=== PATIENT | male | born 1980 | race Caucasian/White ===

== ENCOUNTER 2020-08-23 01:54 | Emergency (ER) | payer OTHER ==
[2020-08-23 02:52] LABS: BASOPHIL 1.2 % (0-2); EOSINOPHIL 1.7 & (0-5); HCT 36.1 % (42.0-52.0); HGB 12.3 g/dl (13.2-18.0); LYMPHOCYTE 18.2 % (15-48); MCH 31.1 pg (25.0-31.0); MCHC 34.1 g/dL (32.0-36.0); MCV 91.4 fL (78.0-100.0); MONOCYTE 15.9 % (0-12); MPV 8.9 fL (6.0-9.5); NEUTROPHIL 62.6 % (41-80); PLT 451 K/uL (150-400); RBC 3.95 M/uL (4.70-6.00); RDW 13.6 % (11.5-14.0); WBC 5.21 K/uL (4.0-10.5)
[2020-08-23 03:13] LABS: ALBUMIN 3.5 g/dL (3.4-5.0); BILIRUBIN - TOTAL 2.2 mg/dL (0.2-1.0); BUN/CREAT RATIO (CALC) 13.9 RATIO; CREATININE 0.79 mg/dL (0.67-1.17); GLOBULIN (CALCULATION) 3.7 g/dL; POTASSIUM 4.1 mmol/L (3.5-5.1); TOTAL PROTEIN 7.2 g/dL (6.4-8.2)
[2020-08-23 03:49] LABS: LACTIC ACID 1.4 mmol/L (0.4-1.9)
[2020-08-23 04:51] LABS: BILIRUBIN NEGATIVE (NEGATIVE); BLOOD NEGATIVE Ery/uL (NEGATIVE); CLARITY CLEAR (CLEAR); COLOR YELLOW (YELLOW); GLUCOSE (U) NORMAL (NORMAL); LEUKOCYTES NEGATIVE Leu/uL (NEGATIVE); NITRITE NEGATIVE (NEGATIVE); PROTEIN 1+ mg/dL (NEGATIVE); SPECIFIC GRAVITY 1.015 (1.001-1.030); pH 8.5 (5.0-9.0)
[2020-08-23 04:58] LABS: AMORPHOUS URATES CRYSTALS MODERATE; SPERM PRESENT; URINARY RBC RARE
[2020-08-23] MEDS ORDERED: VIBRAMYCIN100 MG PO (06:26)
[2020-08-25 21:08] LABS: CHLAMYDIA TRACHOMATIS, NAA Negative (Negative); NEISSERIA GONORRHOEAE, NAA Negative (Negative)
== END 2020-08-23 06:40 | disposition home or self-care (01) ==
LOC: FER 01:54
PROVIDERS: Emergency Medicine Emergency Medical Services
DX: N43.3 Hydrocele, unspecified (principal); R91.8 Other nonspecific abnormal finding of lung field; R10.30 Lower abdominal pain, unspecified; I10 Essential (primary) hypertension; F17.210 Nicotine dependence, cigarettes, uncomplicated; Z88.5 Allergy status to narcotic agent; Z88.8 Allergy status to other drugs, medicaments and biological substances; Z88.6 Allergy status to analgesic agent
CPT/HCPCS: 36415; 76870; 80053; 81001; 82150; 83605; 83690; 84145; 85025; 87491; 87591; J1170; J1885; J2405; J7030; Q9967

== ENCOUNTER 2020-09-09 20:34 | Emergency (ER) | payer OTHER ==
[~2020-09-09 20:34] MED LIST: VIBRAMYCIN100 MG PO
[2020-09-09] MEDS ORDERED: IBUPROFEN800 MG PO (21:36)
== END 2020-09-09 21:48 | disposition home or self-care (01) ==
LOC: FER 20:34
DX: N50.812 Left testicular pain (principal); N50.811 Right testicular pain; I10 Essential (primary) hypertension; F17.200 Nicotine dependence, unspecified, uncomplicated; Z88.8 Allergy status to other drugs, medicaments and biological substances; Z79.899 Other long term (current) drug therapy
CPT/HCPCS: 99283; J1885

== ENCOUNTER 2021-05-19 13:38 | Emergency (ER) | payer OTHER ==
[~2021-05-19 13:38] MED LIST changes: +IBUPROFEN800 MG PO
[2021-05-19 15:02] LABS: BASOPHIL 1.1 % (0-2); EOSINOPHIL 1.9 % (0-5); HCT 40.7 % (42.0-52.0); HGB 14.3 g/dl (13.2-18.0); LYMPHOCYTE 22.5 % (15-48); MCH 31.5 pg (25.0-31.0); MCHC 35.1 g/dL (32.0-36.0); MCV 89.6 fL (78.0-100.0); MONOCYTE 12.7 % (0-12); MPV 9.4 fL (6.0-9.5); NEUTROPHIL 61.4 % (41-80); NRBC 0; PLT 233 K/uL (150-400); RBC 4.54 M/uL (4.70-6.00); RDW 13.1 % (11.5-14.0); WBC 5.7 K/uL (4.0-10.5)
[2021-05-19 15:36] LABS: BUN 17 mg/dL (7-18); BUN/CREAT RATIO (CALC) 11.6 RATIO; CHLORIDE 106 mmol/L (98-107); CO2 (BICARBONATE) 31 mmol/L (21-32); CREATININE 1.47 mg/dL (0.67-1.17); GLUCOSE 73 mg/dL (74-106); POTASSIUM 4.3 mmol/L (3.5-5.1)
[2021-05-19 15:52] LABS: BILIRUBIN NEGATIVE (NEGATIVE); BLOOD NEGATIVE Ery/uL (NEGATIVE); CLARITY CLEAR (CLEAR); COLOR YELLOW (YELLOW); GLUCOSE (U) NORMAL (NORMAL); LEUKOCYTES NEGATIVE Leu/uL (NEGATIVE); NITRITE NEGATIVE (NEGATIVE); PROTEIN NEGATIVE (NEGATIVE); pH 7.5 (5.0-9.0)
[2021-05-19 15:55] LABS: ACETAMINOPHEN (TYLENOL) < 2.0 ug/mL (10.0-30.0)
[2021-05-19 15:57] LABS: AMPHETAMINES NEGATIVE (NEGATIVE); BARBITURATES NEGATIVE (NEGATIVE); ECSTASY (MDMA) NEGATIVE (NEGATIVE); MARIJUANA (THC) NEGATIVE (NEGATIVE); METHADONE NEGATIVE (NEGATIVE); OPIATES NEGATIVE (NEGATIVE); OXYCODONE NEGATIVE (NEGATIVE)
[2021-05-20 20:03] LABS: CORONAVIRUS 2019 SARS-COV-2 NEGATIVE (NEGATIVE); INFLUENZA A NAA NEGATIVE (NEGATIVE)
== END 2021-05-19 23:15 | disposition other institution (70) ==
LOC: FER 13:38
PROVIDERS: Emergency Medicine
DX: S51.811A Laceration without foreign body of right forearm, initial encounter (principal); R44.0 Auditory hallucinations; R44.1 Visual hallucinations; F17.200 Nicotine dependence, unspecified, uncomplicated; Z20.822 Contact with and (suspected) exposure to COVID-19; Z88.5 Allergy status to narcotic agent; Z88.8 Allergy status to other drugs, medicaments and biological substances; X78.1XXA Intentional self-harm by knife, initial encounter
CPT/HCPCS: 36415; 80048; 80305; 81003; 85025; 96372; 99285; G0480; J2060; U0002